=== PATIENT | male | born 1940 | race Caucasian/White ===

== ENCOUNTER → 2018-02-09 | Outpatient (CLI) | payer MEDICARE, BC ==
[~2018-02-09] MED LIST: ALPHA-LIPOIC A300 MG PO; ASPIR 8181 M1 PO; B COMPLETE1 EACH PO; BACTROBAN CREAM15 GM TP; CO Q-10200 MG PO; COZAAR50 MG PO; ELIQUIS5 MG PO; HYDROCHLOROTH12.5 M3 PO; METRO GEL 1%60 GM TP; NORVASC10 MG PO; PANTOTHENIC AC500 MG PO; PROAIR RESPICL90 MCG IH; RANITIDINE HCL150 M1 PO; SINGULAIR10 MG PO; SYMBICORT60 INHALAT IH; TAMSULOSIN HCL0.4 MG PO; TESSALON PERLE100 MG PO; VITAMIN B-1100 MG PO; VITAMIN B-2100 MG PO; VITAMIN C1000 MG PO; VITAMIN D31000 UNIT PO; VITAMIN E400 UNIT PO; WELLBUTRIN SR150 MG PO; [UNRECOGNIZED DRUG - OTHER] BOTH NARES; [UNRECOGNIZED DRUG - OTHER] TP
== END | disposition home or self-care (01) ==
LOC: CDC 13:12
DX: Z01.810 Encounter for preprocedural cardiovascular examination (principal); H43.22 Crystalline deposits in vitreous body, left eye; I44.0 Atrioventricular block, first degree; I49.1 Atrial premature depolarization; I45.2 Bifascicular block; R94.31 Abnormal electrocardiogram [ECG] [EKG]
CPT/HCPCS: 93000

== ENCOUNTER 2018-02-16 08:19 | Day surgery (SDC) | payer OTHER, BC ==
[~2018-02-16] VITALS: Ht 167.6 cm; Wt 77.1 kg
[2018-02-16 08:44] VITALS: BP 173/89
[2018-02-16 11:10] VITALS: BP 144/77
[2018-02-16 11:32] VITALS: BP 135/69
== END 2018-02-16 11:45 | disposition home or self-care (01) ==
LOC: SDC
PROC: 08B53ZZ Excision of Left Vitreous, Percutaneous Approach (ICD-10-PCS; principal; 2018-02-16)
DX: H43.22 Crystalline deposits in vitreous body, left eye (principal); I10 Essential (primary) hypertension; E78.00 Pure hypercholesterolemia, unspecified; I71.9 Aortic aneurysm of unspecified site, without rupture; Z98.890 Other specified postprocedural states; J44.9 Chronic obstructive pulmonary disease, unspecified; K21.9 Gastro-esophageal reflux disease without esophagitis; N40.0 Benign prostatic hyperplasia without lower urinary tract symptoms; G60.9 Hereditary and idiopathic neuropathy, unspecified; G71.3 Mitochondrial myopathy, not elsewhere classified; R79.89 Other specified abnormal findings of blood chemistry; Z86.718 Personal history of other venous thrombosis and embolism; F32.9 Major depressive disorder, single episode, unspecified; D64.9 Anemia, unspecified; R41.89 Other symptoms and signs involving cognitive functions and awareness; Z79.01 Long term (current) use of anticoagulants; Z87.891 Personal history of nicotine dependence; Z80.0 Family history of malignant neoplasm of digestive organs; Z83.49 Family history of other endocrine, nutritional and metabolic diseases; Z80.7 Family history of other malignant neoplasms of lymphoid, hematopoietic and related tissues
CPT/HCPCS: J0690; J2250; J2405; J3300